=== PATIENT | male | born 1990 | race Two or more races ===

== ENCOUNTER 2023-10-29 23:55 | Emergency (ER) | payer SELFPAY ==
[~2023-10-29] VITALS: Ht 172.7 cm; Wt 84.0 kg
[2023-10-30 00:37] VITALS: BP 130/94; PULSE 68; RESP 18; O2SAT 98
[2023-10-30] MEDS ORDERED: LIDOCAINE HCL/PF 1% 10 MG/ML 5ML VIAL INFIL ONE (03:15)
[2023-10-30] MEDS ORDERED: AMOX1TAB16 MT (03:33)
[2023-10-30] MEDS ORDERED: TETANUS, DIPHTHERIA, PERTUSSIS VAC/PF 0.5ML (>10YR OLD) IM ONE (03:45)
== END 2023-10-30 04:32 | disposition home or self-care (01) ==
LOC: ER 10-30 01:41
DX: S01.511A Laceration without foreign body of lip, initial encounter (principal); W54.0XXA Bitten by dog, initial encounter; Y93.89 Activity, other specified; Y92.89 Other specified places as the place of occurrence of the external cause; Y99.8 Other external cause status
CPT/HCPCS: 40650; 99284; 90715; J3490

== ENCOUNTER 2023-11-06 16:06 | Emergency (ER) | payer SELFPAY ==
[~2023-11-06] VITALS: Ht 177.8 cm; Wt 79.0 kg
[~2023-11-06 16:06] MED LIST: AMOX1TAB16 MT
[2023-11-06 16:14] VITALS: O2SAT 98
[2023-11-06 17:22] VITALS: BP 123/78; PULSE 70; RESP 20; TEMP 98.5
[2023-11-06] MEDS ORDERED: IBUPROFEN 600MG TABLET PO ONE (17:30)
== END 2023-11-06 17:29 | disposition home or self-care (01) ==
LOC: ER 16:06
DX: S01.511D Laceration without foreign body of lip, subsequent encounter (principal); X58.XXXD Exposure to other specified factors, subsequent encounter
CPT/HCPCS: 99281; Z7610